=== PATIENT | male | born 1980 | race Caucasian/White ===

== ENCOUNTER 2022-03-12 16:48 | Inpatient (IN) | payer BC, OTHER ==
[2022-03-12] MEDS ORDERED: Morphine 2 MG/ML VIAL SLOW IVP PRN (21:28)
[2022-03-12] MEDS: HYDROcodone/Acetaminophen 7.5/325 mg Tablet PO PRN (21:46)
[2022-03-12] MEDS: Ketorolac Tromethamine 30 MG/ML VIAL IVP SCH (21:46)
[2022-03-12] MEDS: Vancomycin 1 GM in Premix Bag 1 BAG IVPB SCH (21:47)
[2022-03-13 00:18] LABS: SARS-CoV-2 NAA Rapid Test Not Detected (NotDetected)
[2022-03-13] MEDS: Ketorolac Tromethamine 30 MG/ML VIAL IVP SCH ×3 (05:29→20:37)
[2022-03-13 05:33] VITALS: BMI 32.3
[2022-03-13 07:37] LABS: #Eosinphils 0.4 thou/uL (0.0-0.7); #Lymphocytes 2.4 thou/uL (1.20-3.40); #Monocytes 0.4 thou/uL (0.11-0.59); #Neutrophils 2.2 thou/uL (1.40-6.50); %Basophils 0.4 % (0.0-1.0); %Eosinophils 7.6 % (0.0-10.0); %Lymphocytes 44.1 % (21.0-51.0); %Monocytes 7.5 % (0.0-10.0); %Neutrophils 40.3 % (42.0-75.0); Mean Corpuscular HGB CONC 33.4 g/dL (32.0-36.0); Mean Corpuscular Volume 98.8 fl (78.0-98.0); Mean Platelet Volume 7.2 fL (7.4-10.4); Platelet Count 222 10x3/uL (130-400); RBC Distribution Width 11.1 % (11.5-14.5); Red Blood Cell (RBC) Count 4.25 mill/uL (4.70-6.10); White Blood Cell (WBC) Count 5.4 10x3/uL (4.8-10.8)
[2022-03-13] MEDS: Vancomycin 1 GM in Premix Bag 1 BAG IVPB SCH (09:57)
[2022-03-13] MEDS ORDERED: Sodium Chloride 0.9% 1,000 ML IV SCH (10:45)
[2022-03-13] MEDS ORDERED: Bacitracin Zinc Ointment 30 gm TUBE ONE (11:46)
[2022-03-13] MEDS ORDERED: Bupivacaine PF 0.5% 30 ML VIAL ONE (11:46)
[2022-03-13] MEDS ORDERED: Neomycin-Polymyxin 1 ML AMP ONE (11:46)
[2022-03-13] MEDS ORDERED: Midazolam HCl 2 mg/2 ml Vial ONE (12:15)
[2022-03-13] MEDS ORDERED: HYDROmorphone 0.5 MG/0.5 ML SYRINGE ONE (12:21)
[2022-03-13] MEDS ORDERED: Ketorolac Tromethamine 30 MG/ML VIAL ONE (12:26)
[2022-03-13] MEDS ORDERED: Lidocaine 1% PF 5 ML VIAL ONE (12:26)
[2022-03-13] MEDS ORDERED: Dexamethasone 20 MG/5 ML VIAL ONE (12:26)
[2022-03-13] MEDS ORDERED: PROPOFOL 200 MG/20 ML VIAL ONE (12:26)
[2022-03-13] MEDS ORDERED: Ondansetron PF 4 MG/2 ML Vial ONE (12:26)
[2022-03-13] MEDS ORDERED: PACU-Morphine 4MG/ML VIAL SLOW IVP PRN (13:40)
[2022-03-13] MEDS ORDERED: Promethazine HCl 25 MG/ML VIAL IM PRN (13:40)
[2022-03-13] MEDS ORDERED: HYDROmorphone 2 MG/ML VIAL SLOW IVP PRN (13:40)
[2022-03-13] MEDS ORDERED: Ondansetron HCl/PF 4 MG/2 ML Vial IVP PRN (13:40)
[2022-03-13] MEDS: HYDROcodone/Acetaminophen 7.5/325 mg Tablet PO PRN ×2 (17:25→23:38)
[2022-03-13] MEDS ORDERED: Vancomycin 1 GM in Premix Bag 1 BAG IVPB SCH (21:30)
[2022-03-13] MEDS: Vancomycin 1.5 GRAM/300 ML BAG 1.5 GM in Premix Bag 1 BAG IVPB SCH (23:32)
[2022-03-14] MEDS: Ketorolac Tromethamine 30 MG/ML VIAL IVP SCH ×3 (06:11→22:18)
[2022-03-14] MEDS: HYDROcodone/Acetaminophen 7.5/325 mg Tablet PO PRN ×5 (06:12→22:20)
[2022-03-14] MEDS: Vancomycin 1.5 GRAM/300 ML BAG 1.5 GM in Premix Bag 1 BAG IVPB SCH ×3 (09:59→23:00)
[2022-03-14] MEDS ORDERED: HYDROcodone/Acetaminophen 7.5/325 mg Tablet PO PRN (18:57)
[2022-03-14] MEDS ORDERED: Ondansetron PF 4 MG/2 ML Vial IVP PRN (18:58)
[2022-03-14 23:21] LABS: Vancomycin, Trough 9.2 ug/mL
[2022-03-15] MEDS: Vancomycin 1.5 GRAM/300 ML BAG 1.5 GM in Premix Bag 1 BAG IVPB SCH ×3 (00:36→16:12)
[2022-03-15] MEDS: HYDROcodone/Acetaminophen 7.5/325 mg Tablet PO PRN ×4 (04:00→22:35)
[2022-03-15] MEDS: Ketorolac Tromethamine 30 MG/ML VIAL IVP SCH ×3 (06:10→22:34)
[2022-03-15] MEDS ORDERED: Morphine 4 MG/ML VIAL SLOW IVP PRN (10:30)
[2022-03-15 16:41] VITALS: TEMP 98
[2022-03-15 20:16] VITALS: BP 128/80
[2022-03-16] MEDS: Vancomycin 1.5 GRAM/300 ML BAG 1.5 GM in Premix Bag 1 BAG IVPB SCH (00:50)
== END 2022-03-15 22:55 | disposition home or self-care (01) | DRG 581 ==
LOC: SURG A 16:48 → OBSVTOIN 03-14 17:36
PROVIDERS: ADMIT Orthopaedic Surgery Hand Surgery; ATTEND Orthopaedic Surgery Hand Surgery
PROC: 0J9J0ZZ Drainage of Right Hand Subcutaneous Tissue and Fascia, Open Approach (ICD-10-PCS; principal; 2022-03-13)
PROC: 0JBJ0ZZ Excision of Right Hand Subcutaneous Tissue and Fascia, Open Approach (ICD-10-PCS; 2022-03-13)
DX: L02.511 Cutaneous abscess of right hand (principal); Z20.822 Contact with and (suspected) exposure to COVID-19
CPT/HCPCS: 36415; 80202; 82565; 85025; 87070; 87077; 87186; 87205; 96365; 96375; 96376; G0378; J1100; J1170; J1885; J2250; J2270; J2272; J2405; J2704; J3370; J3370-JW; S0020; U0002

== ENCOUNTER 2022-03-20 12:57 | Day surgery (SDC) | payer BC ==
[2022-03-19 13:50] VITALS: BMI 28.3
[2022-03-20] MEDS ORDERED: Mineral Oil Sterile 10 ML VIAL ONE (16:46)
[2022-03-20] MEDS ORDERED: Neomycin-Polymyxin 1 ML AMP ONE (16:46)
[2022-03-20] MEDS ORDERED: Bupivacaine 0.25% HCL 30 ML VIAL ONE (16:46)
[2022-03-20] MEDS ORDERED: Bacitracin Zinc Ointment 30 gm TUBE ONE (16:46)
[2022-03-20] MEDS ORDERED: Thrombin 5000 UNITS/5 ML VIAL ONE (16:46)
[2022-03-20] MEDS ORDERED: Bupivacaine PF 0.5% 30 ML VIAL ONE (16:46)
[2022-03-20] MEDS ORDERED: Sodium Chloride 0.9% 100 ML ONE (16:55)
[2022-03-20] MEDS ORDERED: fentaNYL PF 100 MCG/2 ML SYRINGE ONE ×2 (16:55→16:56)
[2022-03-20] MEDS ORDERED: CEFAZOLIN 2 GM VIAL ONE (16:55)
[2022-03-20] MEDS ORDERED: PROPOFOL 200 MG/20 ML VIAL ONE (17:01)
[2022-03-20] MEDS ORDERED: Ondansetron PF 4 MG/2 ML Vial ONE (17:01)
[2022-03-20] MEDS ORDERED: Lidocaine 1% PF 5 ML VIAL ONE (17:01)
[2022-03-20] MEDS ORDERED: Dexamethasone 20 MG/5 ML VIAL ONE (17:01)
[2022-03-20] MEDS ORDERED: Fentanyl 100 MCG/2 ML VIAL ONE (17:44)
[2022-03-20] MEDS ORDERED: HYDROcodone/Acetaminophen 5/325 mg Tablet ONE (17:51)
[2022-03-20] MEDS ORDERED: Ketorolac Tromethamine 30 MG/ML VIAL ONE (18:11)
== END 2022-03-20 18:40 | disposition home or self-care (01) ==
LOC: SDC 12:57
PROVIDERS: ATTEND Orthopaedic Surgery Hand Surgery
PROC: 0HXFXZZ Transfer Right Hand Skin, External Approach (ICD-10-PCS; principal; 2022-03-20)
DX: S61.206A Unspecified open wound of right little finger without damage to nail, initial encounter (principal); K21.9 Gastro-esophageal reflux disease without esophagitis; E78.00 Pure hypercholesterolemia, unspecified; G43.909 Migraine, unspecified, not intractable, without status migrainosus; M41.9 Scoliosis, unspecified; Z79.899 Other long term (current) drug therapy
CPT/HCPCS: J1100; J1885; J2405; J2704; J3010; J3490; S0020